=== PATIENT | female | born 1990 | race African-American/Black ===

== ENCOUNTER 2018-07-06 18:44 | Emergency (ER) | payer OTHER ==
[~2018-07-06] VITALS: Ht 162.6 cm; Wt 54.4 kg
[2018-07-06 20:25] VITALS: BP 108/66
== END 2018-07-06 21:39 | disposition home or self-care (01) ==
LOC: ER 18:48
DX: R07.89 Other chest pain (principal); M94.0 Chondrocostal junction syndrome [Tietze]; E78.00 Pure hypercholesterolemia, unspecified
CPT/HCPCS: 71045; 93005; 99283; A4606